=== PATIENT | female | born 1970 | race American Indian/Alaskan Native ===

== ENCOUNTER 2020-09-09 10:50 | Emergency (ER) | payer OTHER ==
[~2020-09-09] VITALS: Ht 170.2 cm; Wt 90.7 kg
[2020-09-09 11:01] VITALS: BP 131/91
--- NOTE | 2020-09-09 11:05 | NUR ---
AT BEDSIDE FOR EVAL.
[2020-09-09] MEDS ORDERED: diphenhydrAMINE HCL 25 MG CAPSULE ONE (11:14)
[2020-09-09] MEDS ORDERED: diphenhydrAMINE HCL 25 MG CAPSULE PO ONE (11:30)
== END 2020-09-09 11:17 | disposition home or self-care (01) ==
LOC: ER 10:50
DX: S80.812A Abrasion, left lower leg, initial encounter (principal); W57.XXXA Bitten or stung by nonvenomous insect and other nonvenomous arthropods, initial encounter; Y93.01 Activity, walking, marching and hiking; Y92.89 Other specified places as the place of occurrence of the external cause; Y99.8 Other external cause status
CPT/HCPCS: 99282; Q0163